=== PATIENT | female | born 1990 | race African-American/Black ===

== ENCOUNTER 2021-07-11 03:51 | Emergency (ER) | payer SELFPAY ==
[2021-07-11] MEDS ORDERED: predniSONE 20 MG TAB ONE (04:30)
== END 2021-07-11 04:00 | disposition home or self-care (01) ==
LOC: CSHERS 03:51
DX: J45.901 Unspecified asthma with (acute) exacerbation (principal)
CPT/HCPCS: 99284; J7512

== ENCOUNTER 2021-07-13 04:24 | Emergency (ER) | payer SELFPAY ==
[2021-07-13] MEDS ORDERED: diphenhydrAMINE 25 MG CAP ONE (04:41)
[2021-07-13] MEDS ORDERED: EPINEPHrine 1 MG/ML AMP ONE (04:49)
== END 2021-07-13 05:12 | disposition home or self-care (01) ==
LOC: CSHERS 04:24
DX: L50.0 Allergic urticaria (principal); J45.909 Unspecified asthma, uncomplicated; Z79.899 Other long term (current) drug therapy
CPT/HCPCS: 96372; 99282; J0171

== ENCOUNTER 2021-07-29 06:46 | Emergency (ER) | payer BC ==
[2021-07-29] MEDS ORDERED: predniSONE 20 MG TAB ONE (07:44)
== END 2021-07-29 07:50 | disposition home or self-care (01) ==
LOC: CSHERS 06:46
DX: J45.901 Unspecified asthma with (acute) exacerbation (principal); B34.9 Viral infection, unspecified
CPT/HCPCS: 99284; J7512

== ENCOUNTER 2021-11-30 23:00 | Emergency (ER) | payer BC | END 2021-12-01 00:35 | disposition home or self-care (01) | LOC: CSHERS 23:00 | DX: J06.9 Acute upper respiratory infection, unspecified (principal); I10 Essential (primary) hypertension | CPT/HCPCS: 71046; 93005 ==

== ENCOUNTER 2022-03-01 06:27 | Emergency (ER) | payer BC | END 2022-03-01 09:13 | disposition home or self-care (01) | LOC: CSHERS 06:27 | DX: S62.636A Displaced fracture of distal phalanx of right little finger, initial encounter for closed fracture (principal); I10 Essential (primary) hypertension; W19.XXXA Unspecified fall, initial encounter | CPT/HCPCS: 26750 ==

== ENCOUNTER 2023-06-12 06:46 | Emergency (ER) | payer OTHER ==
[2023-06-12 07:48] LABS: SARS-CoV-2 NAA Rapid Test Not Detected (NotDetected)
== END 2023-06-12 08:16 | disposition home or self-care (01) ==
LOC: CSHERS 06:46
DX: J11.1 Influenza due to unidentified influenza virus with other respiratory manifestations (principal); I10 Essential (primary) hypertension
CPT/HCPCS: 99283